=== PATIENT | male | born 1995 | race Caucasian/White ===

== ENCOUNTER 2016-11-24 04:35 | Emergency (ER) | payer SELFPAY ==
[2016-11-24 05:03] VITALS: TEMP 99.9
[2016-11-24 05:54] VITALS: BP 113/69; PULSE 80; RESP 18; O2SAT 98
== END 2016-11-24 05:47 | disposition home or self-care (01) | DRG 392 ==
LOC: ED 04:35
DX: K21.9 Gastro-esophageal reflux disease without esophagitis (principal); G43.909 Migraine, unspecified, not intractable, without status migrainosus
CPT/HCPCS: 99282; 99283